=== PATIENT | female | born 1945 | race Caucasian/White ===

== ENCOUNTER 2017-03-02 09:09 | Day surgery (SDC) | payer MEDICARE ==
[2017-02-24 15:59] VITALS: BMI 44.1
[~2017-03-02 09:09] MED LIST: LACTATED RINGERS 1,000 ML IV SCH; LIDOCAINE 1% 20 ML VIAL (10MG/ML) FOR IV START INTRADERMA ONE
[2017-03-02] MEDS: CYCLOPENTOLATE 1% OPHTH SOLN 2 ML BTL OP ONE ×3 (09:31→09:46)
[2017-03-02] MEDS: FLURBIPROFEN 0.03% OPHTH DROPS 2.5 ML BTL OP ONE ×3 (09:33→09:48)
[2017-03-02] MEDS: PHENYLEPHRINE 10% OPHTH DROPS 5 ML BTL OP ONE ×3 (09:35→09:50)
[2017-03-02 09:55] VITALS: TEMP 97
[2017-03-02] MEDS ORDERED: fentaNYL (PF) 50 MCG/ML 2 ML AMP ONE (10:10)
[2017-03-02] MEDS ORDERED: MIDAZOLAM 2 MG/2 ML VIAL ONE (10:10)
[2017-03-02] MEDS ORDERED: PROPOFOL 10 MG/ML 20 ML VIAL IV ONE (10:10)
[2017-03-02] MEDS ORDERED: BALANCED SALT IRRIG SOLN COMB2 15 ML IRRIG.SOLN IRRIGATION ONE (10:14)
[2017-03-02] MEDS ORDERED: EPINEPHrine (PF) 0.5 ML in BALANCED SALT IRRIG SOLN COMB2 500 ML IRRIGATION ONE (10:15)
[2017-03-02] MEDS ORDERED: HYALURONATE SODIUM INTRAOCULAR 1 EACH SYRINGE (10MG/ML) INTRAOCULA ONE (10:15)
--- NOTE | 2017-03-02 10:33 | P.OP ---
Date of Procedure: 03/02/17 Preoperative Diagnosis: Postoperative Diagnosis: Procedure(s) Performed: PREOPERATIVE DIAGNOSIS: Cataract, right eye. POSTOPERATIVE DIAGNOSIS: Cataract, right eye. OPERATION: Phacoemulsification cataract, right eye. DESCRIPTION OF PROCEDURE: The patient was taken to the preoperative holding area. Intravenous Propofol was given so as to bring about adequate sedation. The following mixture was given for local anesthesia: 5 mL of 2% lidocaine, 5 mL of 0.75% Marcaine, and 1 mL of Wydase. Approximately 4 mL was injected in the retrobulbar space of the surgical eye. Additional 1 mL was then directed to the temporal area of the surgical eye. This was performed to allow adequate neurological block of the facial muscles. The patient was revived and then taken into the operative room. The patient was prepped and draped in the usual sterile manner for the operative eye. A lid speculum was put into position. The conjunctiva was resected back from the limbus in the 12 o'clock position. Bleeding was controlled with electrocautery. A #69 blade was then used and a half-thickness scleral incision approximately 1-mm posterior to the limbus was made on bare sclera. This was shelved in the clear cornea using a crescent knife. Next a 15-degree blade was used to make a stab incision at the 3 o' clock position at the corneolimbal interface. Keratome blade was then used and the superior wound was extended into the anterior chamber. Viscoelastic was injected into the anterior chamber and to maintain its form. Next, a cystotome was used and a continuous anterior capsulotomy was made without difficulty. Hydrodissection using a blunt cannula and BSS was performed. Phaco probe was then employed and a groove extending from 12 to 6 o'clock in the lens was created. A Zachariah wand was used through the stab incision so as to perform a divide and conquer technique. Next an irrigation aspiration probe was utilized and any residual cortex was removed from the eye. Again, viscoelastic was injected into the anterior chamber. An Melvin posterior chamber lens implant was placed in the cartridge and injected into the anterior chamber without difficulty. The Nasseoey hook was utilized to spin the lens into position and this was again performed without any difficulty. The irrigation and aspiration probe was again employed and any residual viscoelastic was removed from the eye. Then BSS was injected into the limbal stab incision and the anterior chamber re-inflated. The conjunctiva was reapproximated using electrocautery. One drop of 0.25% Timoptic was placed over the corneal along with TobraDex ophthalmic ointment. Two sterile patches and a Platt eye shield were taped into position. The patient was transported to the recovery room in stable condition. Implants: Pathology: none sent Condition: stable Disposition: same day Indications for Procedure: Operative Findings: Description of Procedure:
[2017-03-02 10:56] VITALS: BP 134/59; PULSE 54; RESP 18
[2017-03-02] MEDS ORDERED: BUPIVACAINE (PF) 0.75% 5 ML, LIDOCAINE 4% (PF) 5 ML, HYALURONIDASE, HUMAN RECOMB 150 UNIT MISCELLANE ONE ×3 (23:00)
[2017-03-02] MEDS ORDERED: GENTAMICIN/PREDNISOL AC OPHTH OINT 3.5GM OPHTHALMIC ONE (23:00)
[2017-03-02] MEDS ORDERED: TIMOLOL 0.5% OPHTH SOLN (PF) 0.2 ML DROPERETTE OP ONE (23:00)
== END 2017-03-02 11:01 | disposition home or self-care (01) ==
LOC: OR 09:09
PROVIDERS: ATTEND Ophthalmology
DX: H26.9 Unspecified cataract (principal); K21.9 Gastro-esophageal reflux disease without esophagitis; Z79.82 Long term (current) use of aspirin
CPT/HCPCS: 66984; V2632; J2001; J2250; J3470; J0171; J3010; J2704

== ENCOUNTER 2024-03-16 02:05 | Inpatient (IN) | payer MEDICARE ==
[2024-03-16] MEDS ORDERED: HYDROmorphone 0.5 MG/0.5 ML SYRINGE ONE (14:15)
[2024-03-16] MEDS ORDERED: HYDROcodone/APAP 5-325MG 1 EACH TAB ONE ×2 (19:50→21:08)
[2024-03-16] MEDS ORDERED: KETOROLAC 15 MG/ML 1 ML VIAL ONE (19:50)
[2024-03-16] MEDS ORDERED: GABAPENTIN 100 MG CAP ONE (21:09)
[2024-03-17] MEDS ORDERED: KETOROLAC 15 MG/ML 1 ML VIAL ONE (01:14)
[2024-03-17] MEDS ORDERED: HYDROcodone/APAP 5-325MG 1 EACH TAB ONE ×2 (02:06→07:36)
[2024-03-17] MEDS ORDERED: MORPHINE SULFATE 4 MG/ML SYRINGE ONE (11:34)
[2024-03-17] MEDS ORDERED: SODIUM CHLORIDE 0.9% 500 ML BAG ONE (12:20)
[2024-03-17] MEDS ORDERED: SODIUM CHLORIDE 0.9% 1,000 ML BAG ONE (12:20)
[2024-03-17] MEDS ORDERED: ceFAZolin 1,000 MG VIAL ONE (12:20)
[2024-03-17] MEDS ORDERED: DEXAMETHASONE SOD PHOSPHATE 4 MG/ML 1 ML VIAL ONE (12:24)
[2024-03-17] MEDS ORDERED: ONDANSETRON 4 MG/2 ML VIAL ONE ×2 (12:24→14:38)
[2024-03-17] MEDS ORDERED: MIDAZOLAM 2 MG/2 ML VIAL ONE (12:32)
[2024-03-17] MEDS ORDERED: PROPOFOL 10 MG/ML 20 ML VIAL IV ONE (12:32)
[2024-03-17] MEDS ORDERED: NEOSTIGMINE 1 MG/ML 10 ML VIAL ONE (12:32)
[2024-03-17] MEDS ORDERED: LIDOCAINE 1% INJ 10MG/ML (20 ML MDV) ONE (12:32)
[2024-03-17] MEDS ORDERED: SUCCINYLCHOLINE CHLORIDE 200 MG/10 ML VIAL IV ONE (12:32)
[2024-03-17] MEDS ORDERED: fentaNYL (PF) 50 MCG/ML 2 ML AMP ONE (12:32)
[2024-03-17] MEDS ORDERED: ROCURONIUM 10 MG/ML (5 ML VIAL) IV ONE (12:32)
[2024-03-17] MEDS ORDERED: KETAMINE HCL IN 0.9 % NACL 50 MG/5 ML SYRINGE ONE (12:32)
[2024-03-17] MEDS ORDERED: TRANEXAMIC 1,000 MG/100ML-NACL PREMIX BAG ONE (12:32)
[2024-03-17] MEDS ORDERED: GLYCOPYRROLATE 0.2 MG/ML 2 ML VIAL ONE (12:32)
[2024-03-17] MEDS ORDERED: droPERidol 5 MG/2 ML VIAL ONE (14:57)
[2024-03-17] MEDS ORDERED: GABAPENTIN 100 MG CAP ONE (20:27)
[2024-03-17] MEDS ORDERED: SENNOSIDES-DOCUSATE SODIUM 1 EACH TAB PO ONE (20:27)
[2024-03-17] MEDS ORDERED: hydrOXYzine pamoate 25 MG CAP ONE (20:27)
[2024-03-17] MEDS ORDERED: SODIUM CHLORIDE 0.9% 50 ML BAG ONE (23:59)
[2024-03-17] MEDS ORDERED: ceFAZolin 10 GM VIAL IVPB ONE (23:59)
[2024-03-18] MEDS ORDERED: hydrOXYzine pamoate 25 MG CAP ONE ×2 (08:47→16:47)
[2024-03-18] MEDS ORDERED: SODIUM CHLORIDE 0.9% 1,000 ML BAG ONE (09:00)
[2024-03-18] MEDS ORDERED: HYDROcodone/APAP 5-325MG 1 EACH TAB ONE (20:16)
[2024-03-18] MEDS ORDERED: GABAPENTIN 100 MG CAP ONE (20:16)
[2024-03-18] MEDS ORDERED: SENNOSIDES-DOCUSATE SODIUM 1 EACH TAB PO ONE (20:18)
[2024-03-19] MEDS ORDERED: SODIUM CHLORIDE 0.9% 1,000 ML BAG ONE ×2 (08:00→23:59)
[2024-03-19] MEDS ORDERED: HYDROcodone/APAP 5-325MG 1 EACH TAB ONE ×2 (10:50→19:58)
[2024-03-19] MEDS ORDERED: FERROUS SULFATE 325 MG TAB PO ONE (10:52)
[2024-03-19] MEDS ORDERED: polyethylene glycoL 3350 17 GM POWD.PACK ONE (10:52)
[2024-03-19] MEDS ORDERED: SENNOSIDES 8.6 MG TAB ONE (19:58)
[2024-03-19] MEDS ORDERED: GABAPENTIN 100 MG CAP ONE (21:24)
[2024-03-20] MEDS ORDERED: FERROUS SULFATE 325 MG TAB PO ONE (09:26)
[2024-03-20] MEDS ORDERED: HYDROcodone/APAP 7.5-325MG 1 EACH TAB ONE ×3 (09:27→21:39)
[2024-03-20] MEDS ORDERED: polyethylene glycoL 3350 17 GM POWD.PACK ONE (09:27)
[2024-03-20] MEDS ORDERED: SENNOSIDES 8.6 MG TAB ONE (09:28)
[2024-03-20] MEDS ORDERED: GABAPENTIN 100 MG CAP ONE (19:54)
[2024-03-21] MEDS ORDERED: HYDROcodone/APAP 7.5-325MG 1 EACH TAB ONE ×2 (06:37→15:31)
[2024-03-21] MEDS ORDERED: FERROUS SULFATE 325 MG TAB PO ONE (10:17)
[2024-03-21] MEDS ORDERED: polyethylene glycoL 3350 17 GM POWD.PACK ONE (10:17)
[2024-03-21] MEDS ORDERED: LACTULOSE 20 GM/30 ML CUP ONE (10:18)
[2024-03-21] MEDS ORDERED: ASPIRIN 325 MG TAB ONE (10:18)
[2024-03-21] MEDS ORDERED: SENNOSIDES 8.6 MG TAB ONE (10:19)
--- NOTE | 2024-04-13 10:33 | CT ---
Site ID [facility] Patient Isabel Euceda ID [id number] [id number] Order # Procedure CT pelvis wo con Presurgical planning of right hip. Scanned by MP. Combined DLP 1243 EXAMINATION TYPE: CT pelvis wo con CT DLP: 1243 mGycm, Automated exposure control for dose reduction was used. DATE OF EXAM: 03/17/2024 10:16 AM COMPARISON: Plain film 03/16/2024 CLINICAL INDICATION: Right hip fracture. TECHNIQUE: Axial CT pelvis wo con;Sagittal and coronal reformats were created on a separate workstat ion. Contrast used: mL of , (none if empty) Oral contrast used: (none if empty) FINDINGS: BLADDER: Unremarkable REPRODUCTIVE: Unremarkable. ABDOMEN & PELVIS STOMACH AND BOWEL: No evidence of bowel obstruction. PERITONEUM/RETROPERITONEUM: No evidence of pneumoperitoneum or free fluid. VASCULATURE: No evidence of aortic aneurysm. MUSCULOSKELETAL: Acute fracture of the right femur is again redemonstrated. Fracture involves the int ertrochanteric region with multiple fragments present. Displacement posteriorly of the greater trocha nter. There is also possibly a subcapital femoral neck fracture which is impacted. The remainder of t he pelvis appears intact. LYMPH NODES: No gross evidence for lymphadenopathy. SOFT TISSUE/ABDOMINAL WALL: Soft tissue hematoma around the right hip with layering fluid fluid level . Thought to be within the radius mediastinum also. Measuring 4.1 x 2.4 cm mass. IMPRESSION: 1. Acute fracture of the proximal right femur thought to be involving predominantly the intertrochan teric region with additional subcapital femoral neck fracture also present which is impacted. 2. No evidence for acute abdominal process. 3. Scattered colonic diverticulosis.
--- NOTE | 2024-04-13 10:34 | CT ---
Site ID [facility] Patient Isabel Euceda ID [id number] [id number] Order # Procedure CT right hip EXAMINATION TYPE: CT pelvis wo con CT DLP: 1243 mGycm, Automated exposure control for dose reduction was used. DATE OF EXAM: 03/17/2024 10:16 AM COMPARISON: Plain film 03/16/2024 CLINICAL INDICATION: Right hip fracture. TECHNIQUE: Axial CT pelvis wo con;Sagittal and coronal reformats were created on a separate workstat ion. Contrast used: mL of , (none if empty) Oral contrast used: (none if empty) FINDINGS: BLADDER: Unremarkable REPRODUCTIVE: Unremarkable. ABDOMEN & PELVIS STOMACH AND BOWEL: No evidence of bowel obstruction. PERITONEUM/RETROPERITONEUM: No evidence of pneumoperitoneum or free fluid. VASCULATURE: No evidence of aortic aneurysm. MUSCULOSKELETAL: Acute fracture of the right femur is again redemonstrated. Fracture involves the int ertrochanteric region with multiple fragments present. Displacement posteriorly of the greater trocha nter. There is also possibly a subcapital femoral neck fracture which is impacted. The remainder of t he pelvis appears intact. LYMPH NODES: No gross evidence for lymphadenopathy. SOFT TISSUE/ABDOMINAL WALL: Soft tissue hematoma around the right hip with layering fluid fluid level . Thought to be within the radius mediastinum also. Measuring 4.1 x 2.4 cm mass. IMPRESSION: 1. Acute fracture of the proximal right femur thought to be involving predominantly the intertrochan teric region with additional subcapital femoral neck fracture also present which is impacted. 2. No evidence for acute abdominal process. 3. Scattered colonic diverticulosis.
--- NOTE | 2024-04-18 08:29 | XR ---
Site ID [facility] Patient Isabel Euceda ID [id number] [id number] Order # Procedure XR RT HIP W/ PELVIS EXAMINATION TYPE: XR Hip Complete RT with AP pelvis. DATE OF EXAM: 03/16/2024 3:12 PM CLINICAL INDICATION: FALL COMPARISON: THIS EXAM WAS READ DURING PACS DOWNTIME, NO PRIORS AVAILABLE. TECHNIQUE: XR Hip Complete RT; hip was examined in the frontal and lateral projections and a AP pelvi s. FINDINGS/IMPRESSION: * Right intertrochanteric proximal femur fracture with varus deformity. * The left hip is intact. Multilevel degeneration changes of the spine.
--- NOTE | 2024-04-18 13:17 | XR ---
Patient Isabel Euceda ID [id number] Order # EXAMINATION TYPE: XR elbow complete RT DATE OF EXAM: 03/17/2024 COMPARISON: No comparison available on downtime PACS. HISTORY: Bruising post fall TECHNIQUE: 3 view right elbow. FINDINGS: Radius aligns normally with the humerus. Anterior fat pad is normal. No elevation of coagulating bath operator ior fat pad is evident. No acute fractures or dislocations evident. There may be some soft tissue injury posterior to the ole cranon. An IV catheter is in the antecubital fossa. Follow up exams can be performed 7-10 days from acute tra capo for continued pain. IMPRESSION: 1. No acute osseous abnormality right elbow. 2. Posterior soft tissue injury.
--- NOTE | 2024-04-19 06:14 | XR ---
Patient Isabel Euceda ID [id number] Order # EXAMINATION TYPE: XR Hip Limited RT DATE OF EXAM: 03/18/2024 COMPARISON: CT 03/17/2024 HISTORY: Post right hip and TECHNIQUE: AP right hip FINDINGS: Hip pin transversing the intertrochanteric fracture. Medullary karol is present. No new fract ures are evident. Surgical skin haily are present. IMPRESSION: 1. No new fractures post right hip fixation.
--- NOTE | 2024-05-02 18:21 | XR ---
EXAMINATION TYPE: XR Hip Limited RT, FL guidance operating room DATE OF EXAM: 04/11/2024 8:41 AM COMPARISON: Pre Operative Images if available both CT/MRI or plain film CLINICAL INDICATION: Female, 79 years old with history of TOTAL ANT HIP IN OR RIGHT; TECHNIQUE: XR Hip Limited RT, FL guidance operating room, multiple fluoroscopic images provided for p roceddylan. Total fluoroscopy time: 2.11 minutes Total submitted images to PACS: 6 DAP: 8.9533 mGym2 Gycm2 uGym2 cGycm2 or equivalent. FINDINGS: Fluoroscopic images during internal fixation/arthroplasty demonstrate fixation hardware in appropriat e position. Hardware appears intact. No immediate complication identified. IMPRESSION: 1. No evidence for intraoperative complication. 2. Please see the operative/procedural note for further details. [facility], , 05/02/2024 6:19 PM
== END 2024-03-21 15:45 | DRG 481 ==
LOC: 1SOBS 02:05 → UNDOADMIN 03-17 12:36 → UNDODISIN 03-21 15:45
PROVIDERS: ADMIT Orthopaedic Surgery; ATTEND Orthopaedic Surgery
PROC: 0QS606Z Reposition Right Upper Femur with Intramedullary Internal Fixation Device, Open Approach (ICD-10-PCS; principal; 2024-03-17)
PROC: 3E0T3BZ Introduction of Anesthetic Agent into Peripheral Nerves and Plexi, Percutaneous Approach (ICD-10-PCS; principal; 2024-03-17)
DX: S72.141A Displaced intertrochanteric fracture of right femur, initial encounter for closed fracture (principal); D62 Acute posthemorrhagic anemia; K59.00 Constipation, unspecified; S50.02XA Contusion of left elbow, initial encounter; R42 Dizziness and giddiness; G62.9 Polyneuropathy, unspecified; M25.561 Pain in right knee; M81.0 Age-related osteoporosis without current pathological fracture; R55 Syncope and collapse; W19.XXXA Unspecified fall, initial encounter; Y92.009 Unspecified place in unspecified non-institutional (private) residence as the place of occurrence of the external cause
CPT/HCPCS: 72192; 73501; 73502; 82728; 83540; 83550; 86850; 86900; 86901; 86920; 96360; 99285